=== PATIENT | male | born 1990 | race Caucasian/White ===

== ENCOUNTER 2018-07-17 01:42 | Emergency (ER) | payer OTHER ==
[2018-07-17 02:44] VITALS: BP 115/74; PULSE 83; TEMP 97; BMI 41.5
[2018-07-17] MEDS ORDERED: IBUPROFEN 400 MG TABLET (FP) PO ONE ×2 (03:01→03:11)
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
== END 2018-07-17 04:05 | disposition home or self-care (01) ==
LOC: JER 01:42
DX: S39.012A Strain of muscle, fascia and tendon of lower back, initial encounter (principal); V43.52XA Car driver injured in collision with other type car in traffic accident, initial encounter; Y92.414 Local residential or business street as the place of occurrence of the external cause; Y93.89 Activity, other specified; Y99.8 Other external cause status
CPT/HCPCS: 99281-25

== ENCOUNTER 2024-09-23 17:32 | Emergency (ER) | payer OTHER ==
[2024-09-23 17:39] VITALS: BP 115/68; PULSE 87; RESP 18; TEMP 98; BMI 45.7
[2024-09-23] MEDS ORDERED: LIDOCAINE 4% PATCH TP ONE (18:14)
[2024-09-23] MEDS ORDERED: METHOCARBAMOL 500 MG TABLET ONE (18:15)
[2024-09-23] MEDS ORDERED: ACETAMINOPHEN 500 MG TABLET (FP) ONE (18:15)
[2024-09-23] MEDS ORDERED: KETOROLAC TROMETHAMINE 30 MG/1 ML VIAL ONE (18:15)
[2024-09-23] MEDS: METHOCARBAMOL 500 MG TABLET PO ONE (18:27)
[2024-09-23] MEDS: KETOROLAC TROMETHAMINE 30 MG/1 ML VIAL IM ONE (18:27)
[2024-09-23] MEDS: LIDOCAINE 4% PATCH TP ONE (18:27)
[2024-09-23] MEDS: ACETAMINOPHEN 500 MG TABLET (FP) PO ONE (18:28)
== END 2024-09-23 21:08 | disposition home or self-care (01) ==
LOC: JERFT 17:32 → JER 17:32 → JERFT 21:08
PROC: 3E0233Z Introduction of Anti-inflammatory into Muscle, Percutaneous Approach (ICD-10-PCS; principal; 2024-09-23)
DX: M62.838 Other muscle spasm (principal); V43.52XA Car driver injured in collision with other type car in traffic accident, initial encounter; Y92.410 Unspecified street and highway as the place of occurrence of the external cause
CPT/HCPCS: 70450-TC; 71046-TC-FY; 72100-TC-FY; 72125-TC; 73030-TC-LT-FY; 73502-TC-LT-FY; 99285-25

== ENCOUNTER 2025-01-16 09:27 | Day surgery (SDC) | payer OTHER ==
[2025-01-11 10:22] VITALS: BMI 44.9
[2025-01-16] MEDS ORDERED: BUPIVACAINE HCL/PF 0.5% (5 MG/ML) 30 ML VIAL IJ ONE (10:37)
[2025-01-16] MEDS ORDERED: FENTANYL CITRATE/PF 50 MCG/ML VIAL ONE (10:38)
[2025-01-16] MEDS ORDERED: MIDAZOLAM HCL 2 MG/2 ML SINGLE DOSE VIAL ONE (10:38)
[2025-01-16] MEDS ORDERED: PROPOFOL 60 ML ONE (10:47)
[2025-01-16] MEDS ORDERED: SUCCINYLCHOLINE CHLORIDE 200 MG/10 ML SYRINGE ONE (10:48)
[2025-01-16] MEDS ORDERED: LIDOCAINE HCL/PF 2% SDV 5ML VIAL ONE (10:48)
[2025-01-16] MEDS ORDERED: SUGAMMADEX SODIUM 200 MG/2 ML VIAL ONE (13:04)
[2025-01-16] MEDS ORDERED: LORATADINE 10 MG TABLET PO PRN (13:07)
[2025-01-16] MEDS ORDERED: IBUPROFEN 600 MG TABLET (FP) PO PRN (13:07)
[2025-01-16] MEDS ORDERED: ONDANSETRON 4 MG/2 ML VIAL IVPUSH PRN (13:48)
[2025-01-16] MEDS: ALBUTEROL SO4 0.083% IH SOL 2.5 MG/3 ML VIAL.NEB. NEB PRN (13:54)
[2025-01-16] MEDS ORDERED: ACETAMINOPHEN INJECTION 100 ML ONE (13:59)
[2025-01-16] MEDS ORDERED: LACTATED RINGERS SOLUTION 1,000 ML IV SCH (14:00)
[2025-01-16] MEDS: ACETAMINOPHEN 1000 MG/100 ML BAG IVPB PRN (14:00)
[2025-01-16 15:58] VITALS: RESP 19
[2025-01-16 16:09] VITALS: BP 101/71; PULSE 85
[2025-01-16 17:20] VITALS: TEMP 898.6
== END 2025-01-16 16:45 | disposition home or self-care (01) ==
LOC: FASU 09:27
PROVIDERS: ATTEND Orthopaedic Surgery
PROC: 0RBK4ZZ Excision of Left Shoulder Joint, Percutaneous Endoscopic Approach (ICD-10-PCS; principal; 2025-01-16 11:39)
DX: S46.012D Strain of muscle(s) and tendon(s) of the rotator cuff of left shoulder, subsequent encounter (principal); S43.432D Superior glenoid labrum lesion of left shoulder, subsequent encounter; M75.52 Bursitis of left shoulder; M75.22 Bicipital tendinitis, left shoulder; M65.812 Other synovitis and tenosynovitis, left shoulder; M25.312 Other instability, left shoulder
CPT/HCPCS: 82962; 94760; C1713